=== PATIENT | male | born 1980 | race African-American/Black ===

== ENCOUNTER 2020-10-22 07:48 | Inpatient (IN) ==
--- NOTE | 2020-09-28 09:54 | Anesthesiology Consultation ---
Date of Service September 28, 2020 Assessment & Plan (1) Encounter for pre-operative examination: Chart Review Chart Review: Acceptable Risk for Surgery (pending preop Covid testing and anesthesia evaluation DOS) and Patient NOT seen in Pre Admission Testing -Will leave to anesthesia discretion if CMP needed DOS- LFTs WNL 07/2020. Per nursing assessment 09/25/2020, patient resides and works in [employer]. No recent travel. Wears mask, uses good hand hygiene and socially distances. No known Covid positive contacts or Covid related symptoms. Pt will be following up with surgeon for Covid date and time= will await results. History Surgery Operation Date: 10/22/20 08:15 Proposed Procedures p Laparoscipic Hiatal Hernia Repair with Partial Gastric Fundoplication - Deangelo Nails, Height/Weight Height: 5 ft 10 in Weight: 92.986 kg Allergies Allergy/AdvReac Type Severity Reaction Status Date / Time No Known Allergies Allergy Verified 09/25/20 15:39 Medications Home Medications Medication Instructions Recorded Confirmed Last Taken montelukast 10 mg tablet 10 mg PO QPM #30 tab 07/21/20 09/25/20 08/03/20 omeprazole 40 mg PO QAM 07/28/20 09/25/20 08/03/20 terbinafine HCl 250 mg tablet 250 mg PO DAILY 08/10/20 09/25/20 Unknown ibuprofen [Excedrin IB] 400 mg PO Q6H PRN 09/25/20 09/25/20 Unknown Past Medical History Medical History (Updated 09/28/20 @ 09:52 by Gege Murcia PA-C) Allergic rhinitis Frequent headaches Suspect tension headache per PCP records- pt was also referred to optometry for eye exam GERD (gastroesophageal reflux disease) Medical marijuana use Panic attacks hx of in his SLEEP Tinea unguium Prescribed Terbinafine from construction manager per 07/2020 note Past Family History Family History Uncle Colorectal cancer Other No family history of adverse response to anesthesia Denies family history of Ovarian cancer Prostate cancer Myocardial infarction Breast cancer Past Surgical History Surgical History H/O colonoscopy History of esophagogastroduodenoscopy (EGD) [place] teeth removed Social History Smoking Status: Former smoker Do You Dip or Chew Tobacco: No Smoking End Date: QUIT 2005 Hx Alcohol Use: Yes Alcohol type: other alcohol intake frequency: a few times a week Hx Substance Use: No substance use type: marijuana Substance Use Type Other:: MEDICAL MARIJUANA CARD-INHALATION 1 X Q 3 WEEKS Testing Other Testing Chest CT 08/28/20= No acute intrathoracic abnormality.
[~2020-10-22 07:48] MED LIST: LACTATED RINGER'S 1,000 ML IV SCH; ceFAZolin 2000MG 2,000 MG/15 ML SYR IV SCH
--- NOTE | 2020-10-22 09:12 | History & Physical Report ---
Date of Service October 22, 2020 Assessment & Plan (1) GERD (gastroesophageal reflux disease): (2) Large hiatal hernia: We discussed his options previously in the office. Because he is symptomatic he has decided to have his hiatal hernia repaired. He did not wish to undergo manometry testing so therefore we can only offer him a partial fundoplication for the acid reflux. We discussed potential risks which would include bleeding, infection, injury to another organ, dysphagia, DVT, PE, HI, CVA etc. We have previously given him some literature as well. I have answered all of his questions. We will proceed today with laparoscopic hiatal hernia repair and partial fundoplication. History of Present Illness Primary Care Provider: Pamela Flores MD Patient referred for a hiatal hernia found by GI. He has been having upper abdominal discomfort which is worsened. He is having some GERD as well as occasional dysphagia. CAT scan has confirmed a sliding hiatal hernia. Allergies Allergy/AdvReac Type Severity Reaction Status Date / Time No Known Allergies Allergy Verified 10/22/20 08:14 Home Medications Medication Instructions Recorded Confirmed Type montelukast 10 mg tablet 10 mg PO QPM #30 tab 07/21/20 10/22/20 Rx omeprazole 40 mg PO QAM 07/28/20 10/22/20 History terbinafine HCl 250 mg tablet 250 mg PO DAILY 08/10/20 10/22/20 History ibuprofen [Excedrin IB] 400 mg PO Q6H PRN 09/25/20 10/22/20 History oxycodone-acetaminophen [Percocet] 1 - 2 tab PO Q4H PRN #15 tab 10/22/20 10/22/20 Rx Past Med/Surg History Medical History Allergic rhinitis Frequent headaches Suspect tension headache per PCP records- pt was also referred to optometry for eye exam GERD (gastroesophageal reflux disease) Medical marijuana use Panic attacks hx of in his SLEEP Tinea unguium Prescribed Terbinafine from chemical plant manager per 07/2020 note Surgical History H/O colonoscopy History of esophagogastroduodenoscopy (EGD) [place] teeth removed Family History Uncle Colorectal cancer Other No family history of adverse response to anesthesia Denies family history of Ovarian cancer Prostate cancer Myocardial infarction Breast cancer Social History Smoking Status: Former smoker Tobacco Type: Cigarettes Age Started Using Tobacco: 14; Age Quit Using Tobacco: 22; Years Smoked: 8; Smoking End Date: QUIT 2005; Number of Years Since Quit: 14; Second Hand Exposure: Yes (SPOUSE SMOKES); Do You Dip or Chew Tobacco: No; Hx Alcohol Use: Yes Alcohol type: other Hx Substance Use: No Preferred Language: Zimbabwean Communication Ability: Effective Tenter Feeder Required: No Beliefs That Will Affect Care: None marital status: Current Living Situation: Spouse and Family Current Living Situation Comment: Lives with and 2 kids current occupational status: employed current occupation: SELF-EMPLOYED Other Information That Helps Us Care for You: No Feels Safe at Home: Yes Safety Concerns: Feels Safe At This Time Childhood Exposure to Second-Hand Smoke: No Dental Care, Regularly: Yes Physical Activity Frequency: 1-2 Times per Week Seatbelt Use: always Sunscreen Use: No Assistive Devices: None Review of Systems All systems reviewed & are unremarkable except as noted in HPI & below Physical Exam Constitutional: WD/WN, vitals as above no acute distress and not ill appearing Eyes: PERRL, conjunctivae normal, anicteric sclerae EOM intact bilaterally ENMT: external ear and nose normal, oropharynx normal Ears: no hearing impairment Neck: trachea midline, no thyromegaly Respiratory: normal respiratory effort; no respiratory distress and does not use accessory muscles Cardiovascular: Rate/Rhythm: regular rate and regular rhythm Gastrointestinal (Abdomen): normal bowel sounds, soft, nontender, no hepatosplenomegaly Skin: no rashes, warm and dry Psychiatric: Orientation: alert, oriented x 3 and cooperative Results & Data ([facility]) Vital Signs (Past 12 Hours) Vital Signs Temp Pulse Resp BP Pulse Ox 10/22/20 08:17 36.7 C 67 20 139/79 96
[2020-10-22] MEDS ORDERED: MIDAZOLAM HCL 1 MG/ML 2ML VIAL ONE (09:13)
[2020-10-22] MEDS ORDERED: fentaNYL citrate 100 MCG/2 ML VIAL ONE ×2 (09:14→10:33)
[2020-10-22] MEDS ORDERED: DEXAMETHASONE SOD INJ 4 MG/ML VIAL ONE (09:18)
[2020-10-22] MEDS ORDERED: PROPOFOL IV EMULSION 10 MG/ML 20 ML VIAL IV ONE (09:18)
[2020-10-22] MEDS ORDERED: ONDANSETRON INJ 2 MG/ML 2 ML VIAL ONE (09:18)
[2020-10-22] MEDS ORDERED: LIDOCAINE HCL 2% 2 ML VIAL/AMP(20MG/ML) INFIL ONE ×2 (09:18)
[2020-10-22] MEDS ORDERED: ROCURONIUM BROMIDE 10 MG/ML 5 ML VIAL IV ONE ×2 (09:18→10:52)
[2020-10-22] MEDS ORDERED: BUPIVACAINE/EPINEPHRINE 0.5% MPF 1:200,000 30 ML VIAL ONE (09:31)
[2020-10-22] MEDS ORDERED: METOCLOPRAMIDE HCL INJ 5 MG/ML 2 ML VIAL IV PRN (09:56)
[2020-10-22] MEDS ORDERED: ONDANSETRON INJ 2 MG/ML 2 ML VIAL IV PRN (09:56)
[2020-10-22] MEDS ORDERED: ePHEDrine sulfate 50 MG/ML AMP IV PRN (09:56)
[2020-10-22] MEDS ORDERED: PROMETHAZINE HCL 12.5 MG in SODIUM CHLORIDE 0.9% 50 ML IV PRN (09:56)
[2020-10-22] MEDS ORDERED: ATROPINE SULFATE 0.1 MG/ML 10ML SYR IV PRN (09:56)
[2020-10-22] MEDS ORDERED: HYDROmorphone INJ 2 MG/ML SYR/VIAL IV PRN (09:56)
[2020-10-22] MEDS ORDERED: ePHEDrine sulfate 50 MG/ML SYR ONE (10:56)
--- NOTE | 2020-10-22 11:26 | Operative Report ---
PG Post Operative Report Pre & Post Diagnosis Operation Date: 10/22/20 09:15 Pre-Op Diagnosis: Hiatal Hernia;gerd Post-Op Diagnosis: Hiatal Hernia;gerd I identified the patient and participated in the time-out.: Yes Procedure Operation Date: 10/22/20 09:15 Actual Procedures p Laparoscipic Hiatal Hernia Repair with Partial Gastric Fundoplication, Post erior Gastropexy(Not Applicable) - Deangelo Nails DO Surgeon Deangelo Nails DO Guide Escort kishore Jerez Estimated Blood Loss 5 Findings Consistent with Post-Op Diagnosis Specimens n/a Description of Procedure After informed consent was obtained the patient was taken to the operating room and placed in supine position. After successful intubation the abdomen was sterilely prepped and draped in usual fashion. I began with a supraumbilical incision with an 11 blade scalpel. This was carried down through soft tissue using cautery. The anterior rectus fascia was opened using cautery and two #0 Vicryl stay sutures were placed. Peritoneum was elevated using hemostats and incised under direct vision using a Metzenbaum scissor. A finger sweep was performed. A 12 mm Banuelos trocar was placed and the abdomen was insufflated to 18 mmHg. The laparoscope was inserted and the abdomen examined in 360 degrees. A subxiphoid 5 mm port, a right upper quadrant 12 mm port a right flank 5 mm port and a left flank 5 mm port were all placed under direct vision. The patient was placed in a steep reverse Trendelenburg position. A liver retractor was used throughout the case to help with exposure. The left lobe of the liver was elevated throughout the procedure. This exposed a moderate probably 4 cm hiatal hernia with some gastric incarceration. At this point we had anesthesia remove the NG tube in place a 50 [place] bougie which was performed without any difficulty. I began by using traction countertraction blunt dissection and small amounts of harmonic scalpel to take down the hernia sac. We carried this up along the right gilson of the diaphragm anteriorly. We ended up down at the angle of His on the lateral side. Once the hernia sac was taken down the stomach was reduced into the abdominal cavity without any tension. Next I took down the top four short gastric vessels again using the harmonic scalpel. After this was accomplished I was able to elevate the gastro esophageal junction and closed the hiatal hernia defect posteriorly using 0 Surgidac with an Endo Stitch device. I used the same technique to then closed the remainder of the defect anteriorly. This was all done with minimal tension and did not need mesh. Because of the location of the left gastric vessels I decided to clip and divide these. This allowed a large posterior gastric window which I needed to complete a tension-free fundoplication. The stomach easily passed through this retrogastric space and I was able to easily perform a shoeshine test. Next I performed a posterior gastropexy by securing the posterior aspect of the fundus of the stomach to the right gilson of the diaphragm again using 0 Surgidac. We then performed a 270 degree fundoplication. I grasped the anterior esophageal fat pad with a small portion of esophagus and secured this medially to the fundus of the stomach. Using the same technique I used 0 Surgidac and grab some body of the stomach on the lateral side and again secured this to the anterior esophageal fat pad. This made a tension-free 270 degree fundoplication. We did remove the bougie just prior to completion of the fundoplication so that I did not incidentally suture it to the esophagus. At the end of the procedure the wrap laid nice and tension-free. There was adequate hemostasis. No other abnormalities were identified. The trochars were all removed and the abdomen was desufflated. The fascia of the camera port was closed using 0 Vicryl in a [id number] fashion. All the wounds were thoroughly irrigated and closed using 4-0 Monocryl. Marcaine was injected around them for postoperative analgesia and skin glue used as a dressing. The patient was awakened, extubated and transferred to recovery in stable condition. My physician salon shampoo assistant was present through the entire case. He helped prep the patient. Helped run the camera as well as assist with retraction/exposure throughout my dissection, wo und closure and dressing placement. I attest to the content of the Intraoperative Record and any orders documented therein. Any exceptions are noted below.
[2020-10-22] MEDS ORDERED: NEOSTIGMINE METHYLSULFATE 5 MG/5 ML SYR ONE (11:34)
[2020-10-22] MEDS ORDERED: GLYCOPYRROLATE 0.2 MG/ML VIAL ONE (11:34)
[2020-10-22] MEDS: fentaNYL citrate 100 MCG/2 ML VIAL IV PRN ×4 (11:37→11:52)
--- NOTE | 2020-10-22 12:21 | Anesthesiology Progress Note ---
Date of Service October 22, 2020 Anesthesia Post Procedure Vital Signs Vital Signs: Temp Pulse Pulse Resp BP BP Pulse Ox 10/22/20 12:10 36.9 C 75 13 134/81 93 10/22/20 12:00 68 14 142/83 H 98 10/22/20 11:50 66 17 146/86 H 100 10/22/20 11:40 70 13 139/83 100 10/22/20 11:31 36.1 C L 87 15 147/87 H 100 10/22/20 08:17 36.7 C 67 20 139/79 96 Pain Intensity Abdomen: Pain Intensity: 3 Transfer of Care Handoff Completed per policy Notes Mental Status: alert / awake / arousable and participated in evaluation Patient Amnestic to Procedure: Yes Nausea / Vomiting: adequately controlled Pain: adequately controlled Airway Patency, RR, SpO2: stable & adequate BP & HR: stable & adequate Hydration State: stable & adequate Anesthetic Complications: no major complications apparent
[2020-10-22] MEDS ORDERED: MoRPHine SULFATE 4 MG/ML 1 ML CARP\\VIAL IV PRN (12:23)
[2020-10-22] MEDS ORDERED: oxyCODONE/ACETAMINOPHEN 5mg/325mg TAB PO PRN (12:23)
[2020-10-22] MEDS ORDERED: MoRPHine SULFATE 2 MG/ML CARP IV PRN (12:23)
[2020-10-22] MEDS: oxyCODONE/ACETAMINOPHEN 5mg/325mg TAB PO PRN ×2 (13:07→20:27)
[2020-10-22] MEDS: LACTATED RINGER'S 1,000 ML IV SCH ×2 (13:07→20:28)
[2020-10-22] MEDS ORDERED: KETOROLAC 30 MG/ML VIAL IV ONE (15:31)
[2020-10-22] MEDS: HYDROmorphone INJ 1 MG/ML SYRINGE IV PRN ×3 (16:34→22:27)
[2020-10-22] MEDS: ONDANSETRON INJ 2 MG/ML 2 ML VIAL IV PRN (20:27)
[2020-10-22] MEDS: MONTELUKAST SODIUM 10 MG TABLET PO SCH (20:27)
[2020-10-23] MEDS: HYDROmorphone INJ 1 MG/ML SYRINGE IV PRN ×3 (02:29→22:10)
[2020-10-23] MEDS: LACTATED RINGER'S 1,000 ML IV SCH ×3 (05:38→23:45)
[2020-10-23] MEDS: oxyCODONE/ACETAMINOPHEN 5mg/325mg TAB PO PRN (05:40)
[2020-10-23] MEDS: PANTOprazole 40 MG TAB PO SCH (07:10)
[2020-10-23] MEDS: terbinafine HCL 250 MG TAB PO SCH (07:12)
[2020-10-23] MEDS ORDERED: KETOROLAC TROMETHAMINE 15 MG/ML VIAL IV PRN (08:28)
[2020-10-23] MEDS ORDERED: oxyCODONE HCL IR 5 MG TAB (IMMEDIATE RELEASE) PO PRN ×2 (08:29)
[2020-10-23] MEDS: ACETAMINOPHEN 1,000 MG/100 ML VIAL IV SCH ×3 (08:51→23:43)
--- NOTE | 2020-10-23 09:17 | Surgery Progress Note ---
Date of Service October 23, 2020 Assessment & Plan (1) History of repair of hiatal hernia: Postoperative day #1 Doing as anticipated however I do not believe he is ready for discharge yet he would like to stay another day. I think this is reasonable. We will add IV acetaminophen as well as some Toradol to help with his discomfort. If he improves he could be discharged on Monday. [facility] surgeons covering for the weekend. Admission and Anticipated Discharge Date Admission Date: October 22, 2020 Subjective Patient seen. He is doing okay although he is surprised with amount of discomfort. He also had a little bit of dizziness and some nausea. He has not really taken much orally other than a little bit of water. Physical Exam Physical Exam: Alert. Appears to be in mild discomfort. Abdomen is soft with expected tenderness. Results & Data ([facility]) Vital Signs (Past 12 Hours) Vital Signs Temp Pulse Resp BP Pulse Ox 10/23/20 07:18 36.6 C 77 16 143/87 H 94 10/23/20 03:05 36.4 C L 84 14 149/92 H 98 10/22/20 23:01 37.2 C 80 16 148/89 H 95
[2020-10-23] MEDS: ONDANSETRON INJ 2 MG/ML 2 ML VIAL IV PRN (10:16)
[2020-10-23] MEDS: MONTELUKAST SODIUM 10 MG TABLET PO SCH (21:51)
[2020-10-24] MEDS: ACETAMINOPHEN 1,000 MG/100 ML VIAL IV SCH (07:25)
[2020-10-24] MEDS: PANTOprazole 40 MG TAB PO SCH (07:26)
[2020-10-24] MEDS: terbinafine HCL 250 MG TAB PO SCH (07:27)
[2020-10-24] MEDS: LACTATED RINGER'S 1,000 ML IV SCH (12:27)
--- NOTE | 2020-10-24 13:42 | Surgery Progress Note ---
Date of Service F/U S/P Laparoscopic Hiatal Hernia Repair with Partial Gastric Fundoplication, Posterior Gastropexy, POD 1 pt is doing fine, he tolerated clear diet, no nausea, no vomiting, no fever, October 24, 2020 Assessment & Plan (1) History of repair of hiatal hernia: (2) GERD (gastroesophageal reflux disease): Laparoscopic Hiatal Hernia Repair with Partial Gastric Fundoplication, Posterior Gastropexy POD 1 doing fine, tolerated clear diet, pt wants to go home today, the care instruction was given, F/U Dr. Nails on 11/02/2020, Present on Admission?: Yes Admission and Anticipated Discharge Date Admission Date: October 23, 2020 Subjective Patient seen. He is doing okay although he is surprised with amount of discomfort. He also had a little bit of dizziness and some nausea. He has not really taken much orally other than a little bit of water. Physical Exam Constitutional: WD/WN, vitals as above well developed and well nourished Eyes: PERRL, conjunctivae normal, anicteric sclerae ENMT: external ear and nose normal, oropharynx normal Neck: trachea midline, no thyromegaly Respiratory: normal respiratory effort, lungs clear to auscultation normal respiratory effort Cardiovascular: RRR, no murmur, no edema Rate/Rhythm: regular rate and regular rhythm Gastrointestinal (Abdomen): normal bowel sounds, soft, nontender, no hepatosplenomegaly Percussion/Palpation: abdomen soft all incisions intact, no redness, BS + Musculoskeletal: no cyanosis or clubbing, extremities motor strength 5/5 Skin: no rashes, warm and dry Neurologic: awake Psychiatric: Orientation: alert and oriented x 3 Results & Data ([facility]) Vital Signs (Past 12 Hours) Vital Signs Temp Pulse Resp BP Pulse Ox 10/24/20 08:00 36.9 C 78 18 142/87 H 96
--- NOTE | 2020-10-27 11:45 | Discharge Summary ---
Date of Service October 27, 2020 Admission HPI Per Admitting Provider Patient referred for a hiatal hernia found by GI. He has been having upper abdominal discomfort which is worsened. He is having some GERD as well as occasional dysphagia. CAT scan has confirmed a sliding hiatal hernia. Principal Diagnosis Hiatal hernia GERD Discharge Exam Constitutional WD/WN, vitals as above Gastrointestinal (Abdomen) Inspection/Auscultation: + abdominal surgical incision (dry); abdomen not distended Percussion/Palpation: abdomen soft Discharge Data Allergies Allergy/AdvReac Type Severity Reaction Status Date / Time No Known Allergies Allergy Verified 10/22/20 08:14 Procedures Performed Operation Date: 10/22/20 09:15 Actual Procedures p Laparoscipic Hiatal Hernia Repair with Partial Gastric Fundoplication, Posterior Gastropexy(Not Applicable) - Deangelo Nails DO Hospital Course (1) GERD (gastroesophageal reflux disease): 40 y/o male with hiatal hernia and GERD was taken to the operating room for laparoscopic hiatal hernia repair with partial fundoplication and was transferred to the surgical floor for observation. He continued to require IV analgesics over the next day including Toradol and Dilaudid. He also was having nausea which limited po intake. By postop day 2 his pain and nausea were improved. He was able to tolerate liquid diet and oral analgesics and was stable for discharge home. Total Time Total Time Spent Total Time Spent (In Minutes): 10 Discharge Plan Discharge Items Patient Disposition: Home - Self-Care Reason For Visit: Hiatal Hernia Discharge Diagnosis: Hiatal hernia repair Activity: As commented below Lifting: No more than 10 pounds Bathing Comment: ok to shower Driving/Machine Use: do not resume driving while taking narcotics for pain Non-emergency contact: Surgeon Call non-emergency contact if: you have any medication questions, your pain is not controlled, you have a fever and your temperature is above 101.5 Follow-up/Referrals: Pamela Flores MD [Primary Care Provider] - Deangelo Nails DO [Surgeon] - (In 1-2 weeks as planned) Diet: Other - See Diet Comment Diet Comment: as discussed; liquidy type foods that can be eaten with a spoon Addtl Attending Provider Instructions: Pending Studies at Discharge: No Stand-Alone Forms: My [facility] Medications and DC Order Prescriptions: New oxycodone-acetaminophen [Percocet] 5-325 mg tablet 1 - 2 tab PO Q4H PRN (Reason: pain, initial therapy, max 6 daily) Qty: 15 RF: 0 ondansetron HCl [Zofran] 4 mg tablet 4 mg PO Q8H PRN (Reason: nausea and vomiting) 5 Days Qty: 15 RF: 0 Continued montelukast [Singulair] 10 mg tablet 10 mg PO QPM Qty: 30 RF: 2 terbinafine HCl 250 mg tablet 250 mg PO DAILY RF: 0 omeprazole 40 mg capsule,delayed release(DR/EC) 40 mg PO QAM RF: 0 ibuprofen 200 mg Tablet 400 mg PO Q6H PRN (Reason: Pain) RF: 0 Discharge Orders: Discharge Order (Routine); Ordered 10/24/20 Ordered By: Quin Mccrary/Other Patient Handouts: Hernia Repair Surgery Admission Data Admit Date/Time: 10/22/20 11:22 Attending Provider: Deangelo Nails Admit Provider: Deangelo Nails Primary Care Provider: Pamela Flores Other Interventions: Discharge Summary Assessment (RN) Last Done: 10/24/20 13:54 Coding Level of Care Code D/C Day Management <30 mins Diagnoses GERD (gastroesophageal reflux disease) K21.9
== END 2020-10-24 14:22 | disposition home or self-care (01) | DRG 328 ==
LOC: 3N 07:48 → ASU 07:48 → OBSVTOIN 11:22